=== PATIENT | male | born 1985 | race Caucasian/White ===

== ENCOUNTER 2018-06-01 11:03 | Emergency (ER) | payer OTHER ==
[~2018-06-01] VITALS: Ht 182.9 cm; Wt 74.8 kg
[2018-06-01 11:55] VITALS: BP 122/63
[2018-06-01] MEDS ORDERED: ACETAMINOPHEN 325 MG TABLET. PO ONE (12:15)
--- NOTE | 2018-06-01 12:58 | RAD ---
History: Fell down steps previous day. Injury. Comparison: None. Findings: AP, lateral, and oblique views of the right knee. No acute fracture score dislocation is identified. No joint effusion is seen. Impression: No acute osseous abnormality identified. Electronically signed by: Jasvir Velarde MD (06/01/2018 12:55 PM) [facility] [place]
--- NOTE | 2018-06-01 12:58 | RAD ---
History: Fell down steps previous day. Comparison: None. Findings: AP, lateral, and oblique views of the right ankle. Lateral ankle soft tissue swelling is seen. No acute fracture or dislocation is identified. Several well-corticated ossific densities are seen dorsal to the mid and hindfoot. Impression: No acute osseous traumatic injury identified. Electronically signed by: Jasvir Velarde MD (06/01/2018 12:54 PM) [facility] – [place]
--- NOTE | 2018-06-01 13:08 | PHYS DOC ---
Past Medical History Past Medical History: No Pertinent History Past Surgical History: No Surgical History Alcohol Use: Occasionally Drug Use: None Adult General Chief Complaint Chief Complaint: LOWEREXTREMITY INJURY HPI HPI Patient is a 33 year old [f__sex] who presents with [] Review of Systems Review of Systems Constitutional: Denies fever or chills [] Eyes: Denies change in visual acuity, redness, or eye pain [] HENT: Denies nasal congestion or sore throat [] Respiratory: Denies cough or shortness of breath [] Cardiovascular: No additional information not addressed in HPI [] GI: Denies abdominal pain, nausea, vomiting, bloody stools or diarrhea [] : Denies dysuria or hematuria [] Musculoskeletal: Denies back pain or joint pain [] Integument: Denies rash or skin lesions [] Neurologic: Denies headache, focal weakness or sensory changes [] Endocrine: Denies polyuria or polydipsia [] All other systems were reviewed and found to be within normal limits, except as documented in this note. Current Medications Current Medications Current Medications Medications (Trade) Dose Ordered Sig/Yari Start Time Stop Time Status Last Admin Dose Admin Acetaminophen (Tylenol) 650 mg 1X ONCE 06/01/18 12:15 06/01/18 12:16 DC 06/01/18 12:35 650 MG Allergies Allergies Allergies Coded Allergies Type Severity Reaction Last Updated Verified No Known Drug Allergies 06/25/15 No Physical Exam Physical Exam Constitutional: Well developed, well nourished, no acute distress, non-toxic appearance. [] HENT: Normocephalic, atraumatic, bilateral external ears normal, oropharynx moist, no oral exudates, nose normal. [] Eyes: PERRLA, EOMI, conjunctiva normal, no discharge. [] Neck: Normal range of motion, no tenderness, supple, no stridor. [] Cardiovascular:Heart rate regular rhythm, no murmur [] Lungs & Thorax: Bilateral breath sounds clear to auscultation [] Abdomen: Bowel sounds normal, soft, no tenderness, no masses, no pulsatile masses. [] Skin: Warm, dry, no erythema, no rash. [] Back: No tenderness, no CVA tenderness. [] Extremities: No tenderness, no cyanosis, no clubbing, ROM intact, no edema. [] Neurologic: Alert and oriented X 3, normal motor function, normal sensory function, no focal deficits noted. [] Psychologic: Affect normal, judgement normal, mood normal. [] Current Patient Data Vital Signs Vital Signs Date Time Temp Pulse Resp B/P (MAP) Pulse Ox O2 Delivery O2 Flow Rate FiO2 06/01/18 11:55 98.7 86 16 122/63 (82) 97 Room Air 98.7 EKG EKG [] Radiology/Procedures Radiology/Procedures [] Course & Med Decision Making Course & Med Decision Making Pertinent Labs and Imaging studies reviewed. (See chart for details) [] Dragon Disclaimer Dragon Disclaimer This electronic medical record was generated, in whole or in part, using a voice recognition dictation system. Departure Departure Impression: Primary Impression: Knee sprain Additional Impression: Ankle sprain Referrals: NO PCP (PCP) BENIGNO CLARKE MD orthopedic doctor Patient Instructions: Ankle Sprain, Crutch Use, Knee Immobilizer, [id number] , Knee Sprain Additional Instructions: Tylenol and/or Ibuprofen as needed for pain. If symptoms persist follow-up with orthopedic doctor for further evaluation/ care. Problem Qualifiers CHLOE CASON APRN Jun 01, 2018 13:08
== END 2018-06-01 13:31 | disposition home or self-care (01) ==
LOC: ER 11:03
DX: S93.401A Sprain of unspecified ligament of right ankle, initial encounter (principal); S83.91XA Sprain of unspecified site of right knee, initial encounter; X58.XXXA Exposure to other specified factors, initial encounter; Y93.89 Activity, other specified; Y92.89 Other specified places as the place of occurrence of the external cause; Y99.8 Other external cause status
CPT/HCPCS: 73562; 73610; 99284